=== PATIENT | female | born 1995 | race Two or more races ===

== ENCOUNTER 2017-04-24 10:57 | Emergency (ER) | payer OTHER ==
[~2017-04-24] VITALS: Ht 165.1 cm; Wt 79.0 kg
[2017-04-24 11:02] VITALS: BP 125/73
[2017-04-24] MEDS ORDERED: NITR100C6 PO (11:30)
== END 2017-04-24 12:35 | disposition home or self-care (01) ==
LOC: ED 12:26
DX: O20.0 Threatened abortion (principal); Z3A.01 Less than 8 weeks gestation of pregnancy
CPT/HCPCS: 36415; 84702; 85025; 86901; 99284